=== PATIENT | female | born 1975 | race Two or more races ===

== ENCOUNTER 2016-05-09 05:34 | Emergency (ER) | payer SELFPAY ==
[~2016-05-09] VITALS: Ht 167.6 cm; Wt 68.9 kg
[2016-05-09] MEDS ORDERED: 0.9 % SODIUM CHLORIDE 10 ML DISP.SYRIN. IV PRN (06:00)
[2016-05-09 06:32] LABS: BASO % 1 % (0-3); EOS % 1 % (0-3); HEMATOCRIT 39.1 % (36.0-47.0); HEMOGLOBIN 12.9 g/dL (12.0-15.5); LYMPH # 1.5 x10^3/uL (1.0-4.8); LYMPH % 17 % (24-48); MEAN CORPUSCULAR HEMOGLOBIN 25 pg (25-35); MEAN CORPUSCULAR HGB CONC 33 g/dL (31-37); MEAN CORPUSCULAR VOLUME 77 fL (79-100); MONO % 5 % (0-9); NEUT % 77 % (31-73); PLATELET COUNT 217 x10^3/uL (140-400); RED BLOOD COUNT 5.08 x10^6/uL (3.50-5.40); RED CELL DISTRIBUTION WIDTH 16.3 % (11.5-14.5)
[2016-05-09 06:39] LABS: ANION GAP 11 (6-14); BLOOD UREA NITROGEN 9 mg/dL (7-20); CALCIUM 9.3 mg/dL (8.5-10.1); CARBON DIOXIDE 24 mmol/L (21-32); CHLORIDE 106 mmol/L (98-107); CREATININE 0.9 mg/dL (0.6-1.0); GFR 69.3; GLUCOSE 103 mg/dL (70-99); POTASSIUM 4.3 mmol/L (3.5-5.1); SODIUM 141 mmol/L (136-145)
[2016-05-09 06:44] LABS: ALBUMIN 3.8 g/dL (3.4-5.0); ALK PHOS 89 U/L (46-116); ALT (SGPT) 18 U/L (14-59); AST (SGOT) 16 U/L (15-37); DIRECT BILIRUBIN < 0.1 mg/dL (0.0-0.2); TOTAL BILIRUBIN 0.2 mg/dL (0.2-1.0); TOTAL PROTEIN 7.5 g/dL (6.4-8.2)
[2016-05-09] MEDS ORDERED: ACETAMINOPHEN 325 MG TABLET. PO ONE (07:00)
--- NOTE | 2016-05-09 08:07 | PHYS DOC ---
Past Medical History Past Medical History: Hypertension, Seizure Past Surgical History: Appendectomy, Tonsillectomy, Other Additional Past Surgical Histo: thyroidectomy Additional Information: quit 1 week ago Alcohol Use: Occasionally Drug Use: None Adult General Chief Complaint Chief Complaint: SEIZURE HPI HPI 40-year-old female with a history of epilepsy presents emergency department today after having a seizure. She has not been taking her medications. Currently she is trying "herbal therapy". Her boyfriend is here with her who witnessed the event. He states that it lasted less than 30 seconds. He reports or shaking with all extremities. Afterwards she was confused which improved back to baseline over a short period of time. She denies fecal or urinary incontinence. She denies tongue biting. She denies nausea vomiting fevers or chills. Onset tonight. Location generalized. Duration intermittent. No alleviating factors present. Review of systems is negative for chest pain shortness of breath abdominal pain. All other review of systems is negative unless otherwise noted in history of present illness. Review of Systems Review of Systems SEE ABOVE. Current Medications Current Medications Current Medications Medications (Trade) Dose Ordered Sig/Laura Start Time Stop Time Status Last Admin Dose Admin Acetaminophen (Tylenol) 650 mg 1X ONCE 05/09/16 07:00 05/09/16 07:01 DC 05/09/16 06:52 650 MG Sodium Chloride (Normal Saline Flush) 10 ml QSHIFT PRN 05/09/16 06:00 Allergies Allergies Allergies Coded Allergies Type Severity Reaction Last Updated Verified Unable to Assess 05/09/16 No Physical Exam Physical Exam Constitutional: Well developed, well nourished, no acute distress, non-toxic appearance. HENT: Normocephalic, atraumatic, bilateral external ears normal, oropharynx moist, no oral exudates, nose normal. [] Eyes: PERRLA, EOMI, conjunctiva normal, no discharge. [] Neck: Normal range of motion, no tenderness, supple, no stridor. Cardiovascular:Heart rate regular rhythm, no murmur [] Lungs & Thorax: Bilateral breath sounds clear to auscultation Abdomen: Bowel sounds normal, soft, no tenderness, no masses, no pulsatile masses. [] Skin: Warm, dry, no erythema, no rash. Back: No tenderness, no CVA tenderness. [] Extremities: No tenderness, no cyanosis, no clubbing, ROM intact, no edema. Neurologic: Neuro exam: Mental status: Awake oriented and alert x3 Cranial nerves: Extraocular movements intact, eyebrows tino bilaterally smile symmetric, uvula elevation, shoulder shrug intact, tongue protrusion normal Sensation: equal and normal in all extremities Strength: 5/5 in upper and lower extremities bilaterally Psychologic: Affect normal, judgement normal, mood normal. [] Current Patient Data Vital Signs Vital Signs Date Time Temp Pulse Resp B/P Pulse Ox O2 Delivery O2 Flow Rate FiO2 05/09/16 06:43 70 149/98 96 Room Air 05/09/16 05:43 98.7 16 98.7 Lab Values Laboratory Tests Test 05/09/16 06:00 05/09/16 06:15 05/09/16 07:55 05/09/16 08:03 White Blood Count 9.0x10^3/uL (4.0-11.0) Red Blood Count 5.08x10^6/uL (3.50-5.40) Hemoglobin 12.9g/dL (12.0-15.5) Hematocrit 39.1% (36.0-47.0) Mean Corpuscular Volume 77fL (79-100) L Mean Corpuscular Hemoglobin 25pg (25-35) Mean Corpuscular Hemoglobin Concent 33g/dL (31-37) Red Cell Distribution Width 16.3% (11.5-14.5) H Platelet Count 217x10^3/uL (140-400) Neutrophils (%) (Auto) 77% (31-73) H Lymphocytes (%) (Auto) 17% (24-48) L Monocytes (%) (Auto) 5% (0-9) Eosinophils (%) (Auto) 1% (0-3) Basophils (%) (Auto) 1% (0-3) Neutrophils # (Auto) 6.9x10^3uL (1.8-7.7) Lymphocytes # (Auto) 1.5x10^3/uL (1.0-4.8) Monocytes # (Auto) 0.4x10^3/uL (0.0-1.1) Eosinophils # (Auto) 0.1x10^3/uL (0.0-0.7) Basophils # (Auto) 0.0x10^3/uL (0.0-0.2) Prothrombin Time 13.0SEC (11.7-14.0) Prothrombin Time INR 1.0 (0.8-1.1) PTT 35SEC (24-38) Sodium Level 141mmol/L (136-145) Potassium Level 4.3mmol/L (3.5-5.1) Chloride Level 106mmol/L (98-107) Carbon Dioxide Level 24mmol/L (21-32) Anion Gap 11 (6-14) Blood Urea Nitrogen 9mg/dL (7-20) Creatinine 0.9mg/dL (0.6-1.0) Estimated GFR (Cockcroft-Gault) 69.3 Glucose Level 103mg/dL (70-99) H Calcium Level 9.3mg/dL (8.5-10.1) Total Bilirubin 0.2mg/dL (0.2-1.0) Direct Bilirubin < 0.1mg/dL (0.0-0.2) Aspartate Amino Transferase (AST) 16U/L (15-37) Alanine Aminotransferase (ALT) 18U/L (14-59) Alkaline Phosphatase 89U/L (46-116) Total Protein 7.5g/dL (6.4-8.2) Albumin 3.8g/dL (3.4-5.0) Lactic Acid Level 1.7mmol/L (0.4-2.0) Urine Opiates Screen Pos (NEG) Urine Methadone Screen Neg (NEG) Urine Barbiturates Pos (NEG) Urine Phencyclidine Screen Neg (NEG) Urine Amphetamine/Methamphetamine Neg (NEG) Urine Benzodiazepines Screen Neg (NEG) Urine Cocaine Screen Neg (NEG) Urine Cannabinoids Screen Neg (NEG) Urine Ethyl Alcohol Neg (NEG) POC Urine HCG, Qualitative Hcg negative (Negative) Laboratory Tests 05/09/16 06:00 Laboratory Tests 05/09/16 06:00 EKG EKG [] Radiology/Procedures Radiology/Procedures [] Course & Med Decision Making Course & Med Decision Making Pertinent Labs and Imaging studies reviewed. (See chart for details) [] 40-year-old female presenting to the emergency department today with one episode of seizure activity and a postictal period with return to baseline. On examination the patient was afebrile with a normal heart rate. Blood pressure mildly elevated. Physical exam showed a normal neurologic exam. Blood work obtained which showed a normal CBC. Coags were within normal limits. Lactic acid was not elevated. I referred the patient to our neurology team for epilepsy management, further evaluation workup and care in the outpatient setting. The patient was instructed not to drive due to seizure disorder. I discussed the case with our neurologist Dr. Lizama who recommended restarting the patient's Depakote at 500 twice a day to follow-up with him in clinic next week. Dragon Disclaimer Dragon Disclaimer This electronic medical record was generated, in whole or in part, using a voice recognition dictation system. Departure Departure Impression: Primary Impression: Seizure Disposition: HOME, SELF-CARE Condition: STABLE Referrals: NO PCP (PCP) RADHIKA BASSETT MD 2-3 days Patient Instructions: Epilepsy, [id number], Seizure, Adult Additional Instructions: Thank you for allowing us to participate in your care today. Do not drive because you have seizure disorder. Followup with your neurologist or our neurologist that I provided for you today in 2-3 days. If you do not have a primary care provider you can ask for a list of our primary care providers. Return to the emergency department you have any new or concerning findings. This should be evaluated by the primary care physician and any necessary consulting services for continued management within a few days after discharge. Return to emergency room if you have any new or concerning symptoms including but not limited to fever, chills, nausea, vomiting, intractable pain, any new rashes, chest pain, shortness of air, uncontrolled bleeding, difficulty breathing, and/or vision loss. Scripts Divalproex Sodium (Depakote)500 Mg Tablet.dr1 Tab PO BID #14 TAB Ref 1 Prov:ELIESER ACEVES MD 05/09/16 ELIESER ACEVES MD May 09, 2016 08:07
[2016-05-09 08:21] LABS: BARBITURATES POS (NEG); BENZODIAZEPINES NEG (NEG); CANNABINOIDS NEG (NEG); COCAINE NEG (NEG); METHADONE NEG (NEG); OPIATES POS (NEG); PHENCYCLIDINE NEG (NEG)
[2016-05-09 08:25] LABS: ETHANOL, URINE NEG (NEG)
[2016-05-09] MEDS ORDERED: DIVA500T2 PO (08:40)
[2016-05-09 09:05] VITALS: BP 141/90
== END 2016-05-09 09:15 | disposition home or self-care (01) ==
LOC: ER 05:34
DX: G40.909 Epilepsy, unspecified, not intractable, without status epilepticus (principal); I10 Essential (primary) hypertension; E89.0 Postprocedural hypothyroidism; Z87.891 Personal history of nicotine dependence
CPT/HCPCS: 36415; 80048; 80076; 81025; 83605; 85027; 85610; 85730; 99284; G0481

== ENCOUNTER → 2016-07-09 | Outpatient (CLI) | payer BC ==
[~2016-07-09] MED LIST: DIVA500T2 PO
--- NOTE | 2016-07-10 09:13 | KCIC ---
Bilateral digital diagnostic mammograms with CAD: HISTORY Left breast lump. COMPARISON Baseline exam. FINDINGS Breast density category B. The skin and nipples show no abnormalities. No abnormal lymph nodes are seen in the axilla. The breast parenchyma shows scattered fibroglandular density. In the area of clinical concern the 10 o'clock C position, there is a thin ring of density suggesting a small focus of fat necrosis. Posterior centrally in the left breast on CC view, there is some parenchymal density which appears to represent some superimposition of tissues. There are no other dominant masses, suspicious calcifications or architectural distortions. IMPRESSION No evidence of malignancy. Ultrasound to follow. This study was interpreted with the benefit of Computerized Aided Detection (CAD). Mammography is not 100% sensitive in detecting breast cancer. Therefore, a self breast exam and a clinical breast exam are very important. A negative mammogram does not negate a clinically suspicious finding and should not result in a delay in biopsying a clinically suspicious abnormality. BI-RADS category 0: Incomplete. Ultrasound to follow. Left breast ultrasound: Ultrasound examination was performed of the left breast in the area of clinical concern and posterior centrally in the area of mammographic density. At the 10:30 position 11 centimeters from nipple and corresponding to the area of clinical concern and ring like density seen mammographically, there is a 6.7 x 6.2 millimeter hypoechoic lesion with some internal echogenicity to which shows no vascular flow. This probably reflects fat necrosis. No other focal lesions are seen in the left breast. No abnormal lymph nodes are seen in the left axilla. Impression: 6.7 millimeter hypoechoic nodule consistent with fat necrosis. Recommend follow-up in 3 months with mammograms and ultrasound of the left breast. BI-RADS category 3: Probably benign. This patient's information has been entered into a reminder system for the patient to be notified with the results of this examination and a target date for her next mammograms. Electronically signed by: Karyna Schuster MD (Jul 10, 2016 09:12:30)
== END | disposition home or self-care (01) ==
LOC: KCIC MAMMO 08:47
PROVIDERS: ATTEND Family Medicine
DX: N63 Unspecified lump in breast (principal)
CPT/HCPCS: 76641; G0204; 77066

== ENCOUNTER → 2016-09-01 | Outpatient (CLI) | payer BC ==
--- NOTE | 2016-09-01 11:52 | KCIC ---
MR of the left knee HISTORY: Left knee pain and limited mobility. Injury and surgery of the patella August 2015. COMPARISON: None FINDINGS: No evidence of a medial meniscal tear. No evidence of a lateral meniscal tear. Anterior cruciate ligament intact. Posterior cruciate ligament intact Medial collateral ligament is intact. Iliotibial band unremarkable Fibular collateral ligament, biceps femoris tendon and popliteus tendon are intact. Extensive metal artifact obscures the patella, distal quadriceps tendon and proximal patellar tendon. No significant joint effusion. No significant Red's cyst. Patellofemoral joint: Cartilage is obscured by the artifact. Medial joint: No acute cartilage defect Lateral joint: No acute cartilage defect No evidence of bone lesion or acute fracture. No significant Red's cyst. IMPRESSION: 1. Patella and extensor mechanism is poorly evaluated due to metal artifact. 2. No evidence of internal derangement. Electronically signed by: Jhonatan Krishnan MD (09/01/2016 11:49 AM)
--- NOTE | 2016-09-01 11:57 | KCIC ---
MR of the right knee HISTORY: Right knee pain. No known injury. TECHNIQUE: Routine multiplanar sequences are obtained. FINDINGS: No evidence of medial meniscal tear. No evidence of a lateral meniscal tear. Anterior cruciate ligament intact Posterior cruciate ligament intact Medial collateral ligament intact Iliotibial band unremarkable Fibular collateral ligament, biceps femoris tendon and popliteus tendon are intact. Extensor mechanism intact Small joint effusion No evidence of osteochondral loose body. Moderate chondromalacia of the patella. No bone lesion or acute fracture. No significant Red's cyst. IMPRESSION: Moderate chondromalacia of the patella. Electronically signed by: Jhonatan Krishnan MD (09/01/2016 11:54 AM)
== END | disposition home or self-care (01) ==
LOC: KCIC MRI 09:48
PROVIDERS: ATTEND Orthopaedic Surgery Sports Medicine
DX: M22.41 Chondromalacia patellae, right knee (principal)
CPT/HCPCS: 73721

== ENCOUNTER 2016-10-29 06:02 | Day surgery (SDC) | payer BC ==
[~2016-10-29] VITALS: Ht 170.2 cm; Wt 81.2 kg
[~2016-10-29 06:02] MED LIST changes: +LISI30TA4 PO; +VERA240C2 PO
[2016-10-29 06:33] LABS: NEG OBC UR NEG; POS OBC UR POS
[2016-10-29] MEDS ORDERED: LIDOCAINE 1% 1 ML SYRINGE. ID PRN (07:00)
[2016-10-29] MEDS ORDERED: IV RINGERS,LACTATED 1000ML 1,000 ML IV SCH (07:00)
[2016-10-29] MEDS ORDERED: fentaNYL PF VIAL 100 MCG/2 ML VIAL IV PRN (07:00)
[2016-10-29] MEDS ORDERED: HYDROmorphone 2 MG/ML VIAL IV PRN (07:00)
[2016-10-29] MEDS ORDERED: ONDANSETRON PF 4 MG/2 ML VIAL. IV PRN (07:00)
[2016-10-29] MEDS ORDERED: PROCHLORPERAZINE 10 MG/2 ML VIAL. IV PRN (07:00)
[2016-10-29] MEDS ORDERED: BUPIVACAINE MPF 0.5% 30 ML VIAL. ONE (07:01)
[2016-10-29] MEDS ORDERED: EPINEPHrine VIAL 30 MG/30 ML VIAL ONE (07:01)
[2016-10-29] MEDS ORDERED: LIDOCAINE 1% 20 ML VIAL. ONE (07:01)
[2016-10-29] MEDS ORDERED: fentaNYL PF VIAL 100 MCG/2 ML VIAL ONE ×3 (07:30→08:42)
[2016-10-29] MEDS ORDERED: PROPOFOL 20 ML IV ONE (07:30)
[2016-10-29] MEDS ORDERED: ONDANSETRON PF 4 MG/2 ML VIAL. ONE (07:30)
[2016-10-29] MEDS ORDERED: LIDOCAINE 2% PF Vial for OR 5 ML VIAL. ONE (07:30)
[2016-10-29] MEDS ORDERED: DEXAMETHASONE SOD PHOS 20 MG/5 ML VIAL. ONE (07:30)
[2016-10-29] MEDS ORDERED: MIDAZOLAM HCL/PF 2 MG/2 ML VIAL. ONE (07:30)
--- NOTE | 2016-10-29 07:40 | DISCH ---
DISCHARGE INSTRUCTIONS Condition on Discharge Condition on Discharge: Stable Activity After Discharge Activity Instructions for Disc: Activity as tolerated, Other, see below Bathing Instructions: Shower-keep dressing dry Weight Bearing Status after Di: As tolerated Diet after Discharge Diet after Discharge: Regular Wound Incision Care Wound/Incision Care: Ice to area for comfort, Keep wound/cast CDI, Change dressing Contacting the [facility] after DC Call your doctor for: Concerns you may have Follow-Up Follow up with: Nabila in 2wks LELAND SPEARS II, MD Oct 29, 2016 07:40
[2016-10-29] MEDS: fentaNYL PF VIAL 100 MCG/2 ML VIAL IV PRN ×3 (08:30→08:53)
[2016-10-29] MEDS ORDERED: MORPHINE SULFATE 2 MG/ML DISP.SYRIN. ONE (08:42)
[2016-10-29] MEDS: MORPHINE SULFATE 2 MG/ML DISP.SYRIN. IV PRN ×2 (08:46→08:59)
[2016-10-29] MEDS ORDERED: OXYC-323 PO (08:49)
[2016-10-29] MEDS ORDERED: DOCU-109 PO (08:50)
[2016-10-29] MEDS ORDERED: ONDA4TAB10 SL (08:50)
--- NOTE | 2016-10-29 08:52 | PDOC4 ---
Operative Note Operative Note Date of surgery 10/29/2016 Surgeon: Shoaib Spears MD Preoperative diagnosis: Painful mechanical symptoms after ORIF left patella Postoperative diagnosis same Procedure performed: Diagnostic left knee arthroscopy Blood loss 10 mL Anesthesia Gen. Tourniquet time: None Findings: No loose bodies present, intact cartilage and meniscus without pathology and medial compartment, intact cruciate ligaments, grade 2-3 changes of a small area in the posterior lateral tibial plateau. No meniscal pathology laterally. No femoral condyle pathology laterally. Examination of her patella revealed a small cleft, less than 1 mm, presumably the fracture site. There was abundant thickened fibrotic tissue around this area. Reason for procedure: Patient is a very pleasant 40-year-old female who has been troubled with painful catching between 30 and 45 of knee flexion that is limited her ability to rehabilitation her leg and regaining her strength after ORIF patella. Critical examination, x-rays and MRI were performed in my outpatient orthopedic surgery clinic. Because of this was reducible catching and inability to participate well in rehabilitation, she and I had a discussion of the risks, benefits, and alternatives to the above procedure and she elected to proceed. Description of procedure: Patient was greeted in the preoperative area by myself for the correct extremity was marked and verified. She was taken back to the operative suite and her antibiotics were started and row. Once in the operating room, she was transferred gently supine to the or table and had successful induction of a general anesthetic. She was secured to the bed with all pressure points padded. A nonsterile tourniquet was taped in place to her left upper thigh. We had a padded rest for her foot and a padded bump laterally at her left hip to help maintain her leg at 90 of flexion at the knee. I then conducted an examination under anesthesia and could feel a catch at about 30 of flexion. Her knee was stable to varus and valgus and has negative Marco. Range of motion was 0-140. We then proceeded to prep and drape of left lower extremity in her usual sterile fashion and conducted a standard preoperative timeout. I then palpated and marked her surface anatomy for my anterolateral arthroscopic portal and incised in accordance with this. I then introduced a blunt arthroscopic trocar into the suprapatellar pouch followed by the camera. I then began my diagnostic arthroscopy with the above noted findings and upon entering the medial compartment using a spinal needle to localize an anteromedial portal. I then incised skin in accordance with this and dilated the hole with the trocar. I then introduce my probe and continued with my diagnostic arthroscopy. I spent time inspecting her patella and taking her knee through range of motion and felt that a very thickened large area of fibrotic tissue may have been contributing to her symptoms. This was separate from a plica. This thickened fibrotic tissue was basically just involve the anterolateral area inferior to the patella but upon range of motion I could see that it wouldn't entrap between the patella and trochlea. Therefore, I used a shaver to debride this tissue. I then reconstructed my diagnostic arthroscopy to make sure there was no loose tissue floating around. I then placed my camera and shaver into the suprapatellar pouch and performed repeated aspiration maneuvers with palpation in the posterior knee. After this had removed all excess arthroscopic fluid and the arthroscopic instrumentation. I then closed her portals with simple interrupted 3-0 nylon. I then injected a local anesthetic mixture into the periportal area. After this the leg was cleansed and dried and a sterile dressing was applied. She was awakened from surgery. She tolerated surgery well. No complications. At the conclusion of the surgery she was awakened and transferred gently supine to the recovery room cart and taken to the PACU in stable and extubated condition. Postoperative plan is to resume physical therapy. She can weight-bear as tolerated. Wound care instructions were given to her . We will see her back in 2 weeks, sooner should a problem arises SHOAIB SPEARS II, MD Oct 29, 2016 08:52
[2016-10-29] MEDS ORDERED: ceFAZolin 2GM PREMIX 2 GM/50 ML BAG IV ONE (09:00)
[2016-10-29] MEDS ORDERED: oxyCODONE/APAP 5/325 1 TAB TABLET PO ONE (09:00)
[2016-10-29] MEDS ORDERED: ALBUTEROL SULFATE 2.5 MG/3 ML NEBU. NEB ONE (09:30)
[2016-10-29 09:43] VITALS: BP 174/104
== END 2016-10-29 10:08 | disposition home or self-care (01) ==
LOC: SURG 06:02
PROVIDERS: ATTEND Orthopaedic Surgery Sports Medicine
DX: T84.197A Other mechanical complication of internal fixation device of bone of left lower leg, initial encounter (principal); Y84.8 Other medical procedures as the cause of abnormal reaction of the patient, or of later complication, without mention of misadventure at the time of the procedure; I10 Essential (primary) hypertension; E11.9 Type 2 diabetes mellitus without complications; F41.9 Anxiety disorder, unspecified; F17.200 Nicotine dependence, unspecified, uncomplicated; Z86.69 Personal history of other diseases of the nervous system and sense organs; Z87.39 Personal history of other diseases of the musculoskeletal system and connective tissue; Z86.39 Personal history of other endocrine, nutritional and metabolic disease
CPT/HCPCS: 29870; 81025; C1782; J0171; J0690; J1100; J2250; J2270; J2405; J2704; J3010; J3490; J7613; J2001

== ENCOUNTER → 2017-09-09 | Outpatient (CLI) | payer BC | END | disposition home or self-care (01) | LOC: KCIC MRI 15:32 | DX: M22.41 Chondromalacia patellae, right knee (principal) | CPT/HCPCS: 73721 ==

== ENCOUNTER 2019-03-01 19:20 | Emergency (ER) | payer BC ==
[~2019-03-01] VITALS: Ht 170.2 cm; Wt 83.9 kg
[~2019-03-01 19:20] MED LIST changes: +DOCU-109 PO; +ONDA4TAB10 SL; +OXYC1TAB15 PO
--- NOTE | 2019-03-01 19:43 | PHYS DOC ---
Past Medical History Past Medical History: Hypertension, Seizure Past Surgical History: Appendectomy, Tonsillectomy, Other Additional Past Surgical Histo: thyroidectomy Alcohol Use: Occasionally Drug Use: None Adult General Chief Complaint Chief Complaint: SEIZURE HPI HPI Patient is a 43-year-old female who presents after reportedly having had 2 seizures this evening. Patient had one seizure approximately an hour prior to arrival that lasted approximately 45 seconds. EMS had responded to the scene and patient had refused transport but while EMS was at patient's home, patient had second seizure, lasting proximally 30 seconds. Seizures were generalized, tonic- clonic. Patient states that she typically has mild seizures on a daily basis but state that they are typically partial seizures. Patient reportedly fell from standing position and hit her right cheek and worship area. Patient does not recall the incident. She does report to headache and facial pain. She rates that pain as moderate.[] Review of Systems Review of Systems Constitutional: Denies fever or chills [] Eyes: Denies change in visual acuity, redness, or eye pain [] Respiratory: Denies cough or shortness of breath [] Cardiovascular: No additional information not addressed in HPI [] GI: Denies abdominal pain, nausea, vomiting or diarrhea [] Neurologic: Complains of headache without focal weakness or sensory changes [] All other systems were reviewed and found to be within normal limits, except as documented in this note. Current Medications Current Medications Current Medications Medications (Trade) Dose Ordered Sig/[facility] Start Time Stop Time Status Last Admin Dose Admin Fentanyl Citrate (Fentanyl 2ml Vial) 50 mcg 1X ONCE 03/01/19 21:15 03/01/19 21:16 DC 03/01/19 21:30 50 MCG Hydromorphone HCl (Dilaudid) 0.5 mg 1X ONCE 03/01/19 22:15 03/01/19 22:16 DC 03/01/19 22:18 0.5 MG Ketorolac Tromethamine (Toradol 30mg Vial) 30 mg 1X ONCE 03/01/19 20:45 03/01/19 20:46 DC 03/01/19 20:49 30 MG Lorazepam (Ativan Inj) 1 mg 1X ONCE 03/01/19 19:45 03/01/19 19:46 DC 03/01/19 20:04 1 MG Ondansetron HCl (Zofran) 4 mg 1X ONCE 03/01/19 21:15 03/01/19 21:16 DC 03/01/19 21:28 4 MG Sumatriptan Succinate (Imitrex) 6 mg 1X ONCE 03/01/19 22:15 03/01/19 22:16 DC 03/01/19 22:19 6 MG Valproic Acid 500 mg/Dextrose 55 ml @ 55 mls/hr 1X ONCE 03/01/19 21:15 03/01/19 22:14 DC 03/01/19 21:21 55 MLS/HR Allergies Allergies Allergies Coded Allergies Type Severity Reaction Last Updated Verified No Known Drug Allergies 10/29/16 No Physical Exam Physical Exam Constitutional: Well developed, well nourished, no acute distress, non-toxic appearance. [] HENT: Normocephalic, with ecchymosis noted to the right worship and maxillary region, bilateral external ears normal, oropharynx moist, no oral exudates, nose normal. [] Eyes: PERRLA, EOMI, conjunctiva normal, no discharge. [] Neck: Normal range of motion, no tenderness, supple, no stridor. [] Cardiovascular: Regular rate and rhythm[] Lungs & Thorax: Bilateral breath sounds clear to auscultation [] Abdomen: Bowel sounds normal, soft, no tenderness. [] Skin: Warm, dry, no erythema, no rash. [] Extremities: No tenderness, no cyanosis, no clubbing, ROM intact, no edema. [] Neurologic: Somnolent but awake, no focal deficits noted. [] Current Patient Data Vital Signs Vital Signs Date Time Temp Pulse Resp B/P (MAP) Pulse Ox O2 Delivery O2 Flow Rate FiO2 03/01/19 22:18 16 96 Room Air 03/01/19 21:37 94 03/01/19 19:20 98.6 148/92 (110) 98.6 Lab Values Laboratory Tests Test 03/01/19 19:33 White Blood Count 7.7 x10^3/uL (4.0-11.0) Red Blood Count 4.67 x10^6/uL (3.50-5.40) Hemoglobin 14.2 g/dL (12.0-15.5) Hematocrit 40.7 % (36.0-47.0) Mean Corpuscular Volume 87 fL (79-100) Mean Corpuscular Hemoglobin 31 pg (25-35) Mean Corpuscular Hemoglobin Concent 35 g/dL (31-37) Red Cell Distribution Width 13.1 % (11.5-14.5) Platelet Count 190 x10^3/uL (140-400) Neutrophils (%) (Auto) 75 % (31-73) H Lymphocytes (%) (Auto) 16 % (24-48) L Monocytes (%) (Auto) 7 % (0-9) Eosinophils (%) (Auto) 2 % (0-3) Basophils (%) (Auto) 1 % (0-3) Neutrophils # (Auto) 5.8 x10^3/uL (1.8-7.7) Lymphocytes # (Auto) 1.2 x10^3/uL (1.0-4.8) Monocytes # (Auto) 0.6 x10^3/uL (0.0-1.1) Eosinophils # (Auto) 0.1 x10^3/uL (0.0-0.7) Basophils # (Auto) 0.0 x10^3/uL (0.0-0.2) Sodium Level 137 mmol/L (136-145) Potassium Level 3.4 mmol/L (3.5-5.1) L Chloride Level 96 mmol/L (98-107) L Carbon Dioxide Level 30 mmol/L (21-32) Anion Gap 11 (6-14) Blood Urea Nitrogen 21 mg/dL (7-20) H Creatinine 1.5 mg/dL (0.6-1.0) H Estimated GFR (Cockcroft-Gault) 37.9 BUN/Creatinine Ratio 14 (6-20) Glucose Level 150 mg/dL (70-99) H Lactic Acid Level 3.6 mmol/L (0.4-2.0) H Calcium Level 10.6 mg/dL (8.5-10.1) H Total Bilirubin 0.5 mg/dL (0.2-1.0) Aspartate Amino Transferase (AST) 16 U/L (15-37) Alanine Aminotransferase (ALT) 15 U/L (14-59) Alkaline Phosphatase 72 U/L (46-116) Total Protein 7.9 g/dL (6.4-8.2) Albumin 3.9 g/dL (3.4-5.0) Albumin/Globulin Ratio 1.0 (1.0-1.7) Valproic Acid Level 27 mcg/mL (50-100) L Valproic Acid Last Dose Date 02/28/19 Valproic Acid Last Dose Time 2200 Laboratory Tests 03/01/19 19:33 Laboratory Tests 03/01/19 19:33 EKG EKG [] Radiology/Procedures Radiology/Procedures [] Impressions: PROCEDURE: CT HEAD AND MAXILLOFACIAL WO PQRS Compliance Statement: One or more of the following individualized dose reduction techniques were utilized for this examination: 1. Automated exposure control 2. Adjustment of the mA and/or kV according to patient size 3. Use of iterative reconstruction technique CT HEAD, MAXILLOFACIAL, AND CERVICAL SPINE WITHOUT CONTRAST History: Fall, seizure. Comparison: None. Procedure: Axial images are obtained of the head from the skull base through the vertex without IV contrast. Noncontrast helical CT of the cervical spine was performed. Axial, sagittal, and coronal reconstructions were obtained. Helical CT imaging of the facial bones is performed without IV contrast. Findings: The ventricles and sulci are normal for the patient's age. No mass-effect, midline shift, hemorrhage or obvious acute infarction is identified. Basilar cisterns are patent. Bone windows demonstrate no significant calvarial abnormality. There is mild lateral right frontal scalp hematoma. No acute facial bone fracture. Orbital floors are intact. Mild mucosal thickening of the maxillary sinuses bilaterally. Ostiomeatal complexes are partially opacified. Mastoid air cells are well aerated. There is left mandible posterior molar periapical lucency. There is no evidence of acute fracture or acute malalignment of the cervical spine. No perched or jumped facet joints. No significant disc space narrowing. The vertebral body alignment is maintained. Visualized soft tissues of the neck demonstrate no significant abnormalities. The visualized lung apices are clear. IMPRESSION: 1. No acute intracranial abnormality. 2. No acute fracture of the cervical spine. 3. No acute facial bone fracture. 4. Mild lateral right frontal scalp hematoma. Electronically signed by: Jacobo Gonzalez MD (03/01/2019 8:19 PM) [facility] DICTATED and SIGNED BY: JACOBO GONZALEZ MD DATE: 03/01/192018 Course & Med Decision Making Course & Med Decision Making Pertinent Labs and Imaging studies reviewed. (See chart for details) [] Dragon Disclaimer Dragon Disclaimer This electronic medical record was generated, in whole or in part, using a voice recognition dictation system. Departure Departure Impression: Primary Impression: Seizure Additional Impression: Migraine headache Disposition: 01 HOME, SELF-CARE Condition: STABLE Referrals: [facility]ABATUN[facility] (PCP) Patient Instructions: Migraine Headache, Seizure, Adult Problem Qualifiers Additional Impression: Migraine headache Migraine type: unspecified Status migrainosus presence: without status migrainosus Intractability: not intractable Qualified Codes: G43.909 - Migraine, unspecified, not intractable, without status migrainosus JUAN C LUGO Jr. DO Mar 01, 2019 19:43
[2019-03-01 19:50] LABS: BASO % 1 % (0-3); EOS # 0.1 x10^3/uL (0.0-0.7); EOS % 2 % (0-3); HEMATOCRIT 40.7 % (36.0-47.0); HEMOGLOBIN 14.2 g/dL (12.0-15.5); LYMPH # 1.2 x10^3/uL (1.0-4.8); LYMPH % 16 % (24-48); MEAN CORPUSCULAR HEMOGLOBIN 31 pg (25-35); MEAN CORPUSCULAR HGB CONC 35 g/dL (31-37); MEAN CORPUSCULAR VOLUME 87 fL (79-100); MONO # 0.6 x10^3/uL (0.0-1.1); MONO % 7 % (0-9); NEUT # 5.8 x10^3/uL (1.8-7.7); NEUT % 75 % (31-73); PLATELET COUNT 190 x10^3/uL (140-400); RED BLOOD COUNT 4.67 x10^6/uL (3.50-5.40); RED CELL DISTRIBUTION WIDTH 13.1 % (11.5-14.5); WHITE BLOOD COUNT 7.7 x10^3/uL (4.0-11.0)
[2019-03-01 20:04] LABS: ANION GAP 11 (6-14); BLOOD UREA NITROGEN 21 mg/dL (7-20); BUN/CREATININE RATIO 14 (6-20); CALCIUM 10.6 mg/dL (8.5-10.1); CARBON DIOXIDE 30 mmol/L (21-32); CHLORIDE 96 mmol/L (98-107); CREATININE 1.5 mg/dL (0.6-1.0); GFR 37.9; GLUCOSE 150 mg/dL (70-99); POTASSIUM 3.4 mmol/L (3.5-5.1); SODIUM 137 mmol/L (136-145)
[2019-03-01 20:09] LABS: ALBUMIN 3.9 g/dL (3.4-5.0); ALK PHOS 72 U/L (46-116); ALT (SGPT) 15 U/L (14-59); AST (SGOT) 16 U/L (15-37); TOTAL BILIRUBIN 0.5 mg/dL (0.2-1.0); TOTAL PROTEIN 7.9 g/dL (6.4-8.2)
--- NOTE | 2019-03-01 20:22 | RAD ---
PQRS Compliance Statement: One or more of the following individualized dose reduction techniques were utilized for this examination: 1. Automated exposure control 2. Adjustment of the mA and/or kV according to patient size 3. Use of iterative reconstruction technique CT HEAD, MAXILLOFACIAL, AND CERVICAL SPINE WITHOUT CONTRAST History: Fall, seizure. Comparison: None. Procedure: Axial images are obtained of the head from the skull base through the vertex without IV contrast. Noncontrast helical CT of the cervical spine was performed. Axial, sagittal, and coronal reconstructions were obtained. Helical CT imaging of the facial bones is performed without IV contrast. Findings: The ventricles and sulci are normal for the patient's age. No mass-effect, midline shift, hemorrhage or obvious acute infarction is identified. Basilar cisterns are patent. Bone windows demonstrate no significant calvarial abnormality. There is mild lateral right frontal scalp hematoma. No acute facial bone fracture. Orbital floors are intact. Mild mucosal thickening of the maxillary sinuses bilaterally. Ostiomeatal complexes are partially opacified. Mastoid air cells are well aerated. There is left mandible posterior molar periapical lucency. There is no evidence of acute fracture or acute malalignment of the cervical spine. No perched or jumped facet joints. No significant disc space narrowing. The vertebral body alignment is maintained. Visualized soft tissues of the neck demonstrate no significant abnormalities. The visualized lung apices are clear. IMPRESSION: 1. No acute intracranial abnormality. 2. No acute fracture of the cervical spine. 3. No acute facial bone fracture. 4. Mild lateral right frontal scalp hematoma. Electronically signed by: Jacobo Rios MD (03/01/2019 8:19 PM) [facility]
[2019-03-01] MEDS ORDERED: KETOROLAC 30 MG/ML VIAL. IVP ONE (20:45)
[2019-03-01 21:04] LABS: VAL ACID 27 mcg/mL (50-100)
[2019-03-01] MEDS ORDERED: ONDANSETRON PF 4 MG/2 ML VIAL. IV ONE (21:15)
[2019-03-01] MEDS ORDERED: fentaNYL PF VIAL 100 MCG/2 ML VIAL IVP ONE (21:15)
[2019-03-01] MEDS ORDERED: VALPROIC ACID (AS SODIUM SALT) 500 MG in IV DEXTROSE 5% 50 ML IV ONE (21:15)
[2019-03-01 22:07] VITALS: BP 127/79
[2019-03-01] MEDS ORDERED: SUMAtriptan SUCC 6 MG/0.5 ML VIAL. SQ ONE (22:15)
[2019-03-01] MEDS ORDERED: HYDROmorphone 2 MG/ML VIAL IV ONE (22:15)
--- NOTE | 2019-03-02 04:26 | EKG ---
[facility] [address] [place] [address] Test Date: 2019-03-01 Test Time: 19:26:04 Pat Name: SRI MAR Department: Room: Gender: F Shank Burnisher: JOSSE : 1975 Requested By: JUAN C LUGO Order Number: [id number] Reading MD: Measurements Intervals [place] Rate: 93 P: -22 WV: 190 QRS: 26 QRSD: 82 T: 51 QT: 326 QTc: 407 Interpretive Statements SINUS RHYTHM NON SPECIFIC T ABNORMALITY BORDERLINE ECG No previous ECG available for comparison
== END 2019-03-01 22:55 | disposition home or self-care (01) ==
LOC: ER 19:20
DX: S00.03XA Contusion of scalp, initial encounter (principal); G43.909 Migraine, unspecified, not intractable, without status migrainosus; I10 Essential (primary) hypertension; R56.9 Unspecified convulsions; W19.XXXA Unspecified fall, initial encounter; Y93.89 Activity, other specified; Y92.89 Other specified places as the place of occurrence of the external cause; Y99.8 Other external cause status
CPT/HCPCS: 36415; 70450; 70486; 72125; 80053; 80164; 83605; 85025; 93005; 96365; 96372; 96375; 99285; J1170; J1885; J2060; J2405; J3010; J3030

== ENCOUNTER 2020-06-06 05:17 | Emergency (ER) | payer BC ==
[~2020-06-06] VITALS: Ht 167.6 cm; Wt 81.8 kg
[2020-06-06] MEDS ORDERED: IV NORMAL SALINE 1000ML BAG 1,000 ML IV ONE ×2 (05:30→08:30)
--- NOTE | 2020-06-06 05:39 | PHYS DOC ---
Past Medical History Past Medical History: Diabetes-Type II, Hypertension, Seizure (DORA ASKEW DO) Past Surgical History: Appendectomy, Tonsillectomy, Other Additional Past Surgical Histo: thyroidectomy, bilateral knee replacement (DORA ASKEW DO) Smoking Status: Former Smoker Additional Information: smoked for 7-8 years Alcohol Use: None Drug Use: None (DORA ASKEW DO) General Adult EDM: Chief Complaint: MULTIPLE COMPLAINTS HPI: HPI: Patient is a 44 year old female with history of DM2/HTN/epilepsy who presents to [facility] ED after syncopal episode this morning at 4 am. Tapan crespo states that at 4 am this morning she tino from her bed and started walking out of the room when she began to hot, clammy, her body shaking, sudden headache, and "blanked out". She made her way to her who was home and checked her blood pressure at the time which was 115/78. They subsequently checked it 20 min later and saw that it had dropped to 66/44. It stayed in this range for the next hour which prompted them to come to the ED. She reports that she also felt nauseous during this episode and vomited. Patient has history of seizures, and states that she felt like she was having miniature seizures during this episode. She states that she's never had an episode like this before. Patient states that her menstrual periods are becoming more irregular, and that her last one was well over a month ago. Patient's states that while he was trying to talk to her earlier this morning, that she would go in and out of conversation. She states that her diabetes medication regiment has been modified as recent as a month ago. (DORA ASKEW DO) Review of Systems: Review of Systems: Constitutional: Denies fever, reports chills Eyes: Denies redness or eye pain HENT: Denies nasal congestion or sore throat Respiratory: Denies cough or shortness of breath Cardiovascular: Denies chest pain or palpitations GI: Denies abdominal pain, reports nausea and or vomiting : Denies dysuria or hematuria Musculoskeletal: Denies back pain or joint pain Integument: Denies rash or skin lesions Neurologic: Reports headache, reports general weakness, reports light headedness and dizziness Complete systems were reviewed and found to be within normal limits, except as documented in this note. (DORA ASKEW DO) Heart Score: C/O Chest Pain: N/A (DORA ASKEW DO) Current Medications: Current Medications Medications (Trade) Dose Ordered Sig/Laura Start Time Stop Time Status Last Admin Dose Admin Sodium Chloride 1,000 ml @ 1,000 mls/hr 1X ONCE 06/06/20 05:30 06/06/20 06:29 (DORA ASKEW DO) Allergies: Allergies: Allergies Coded Allergies Type Severity Reaction Last Updated Verified No Known Drug Allergies 10/29/16 No (DORA ASKEW DO) Physical Exam: PE: Constitutional: Well developed, well nourished, no acute distress, non-toxic appearance HENT: Normocephalic, atraumatic Eyes: PERRL, EOMI, conjunctiva normal, no discharge Neck: Normal range of motion, no tenderness, supple Lungs & Thorax: No respiratory distress, equal chest rise and fall Abdomen: Soft, no tenderness Skin: Warm, dry, no erythema, no rash Back: No tenderness, no CVA tenderness Extremities: No tenderness, ROM intact, no edema Neurologic: Alert and oriented X 3, normal motor function, normal sensory function, no focal deficits noted Psychologic: Affect normal, judgment normal (DORA ASKEW DO) EKG: EKG: @0534 NSR at 69bpm, NO ST elevation, QRS 78ms, QT/QTc 390/419ms, Q wave in III (DORA ASKEW DO) Radiology/Procedures: Radiology/Procedures: [] (DORA ASKEW DO) Course & Med Decision Making: Course & Med Decision Making Pertinent Lab studies reviewed. (See chart for details) Patient presents with HPI and physical exam concerning for near syncope. History of low blood pressure. IV fluid hydration given. Labs obtained and pending. EKG stable. UA appears contaminated. Urine negative. Signout given to Dr. Coffman for further evaluation and final disposition. Disc ussed current findings and plan with patient and spouse, who acknowledge understanding and agreement. (DORA ASKEW DO) Course & Med Decision Making Patient is a 44-year-old female who had orthostatic hypotension, patient blood pressure was low in ER, patient had history of hypertension, she is on 3 different blood pressure medication. Patient need to stop taking her blood pressure medications AND FOLLOW UP WITH her family physician this week for reevaluation. (SUSI CFOFMAN DO) Edward Disclaimer: Edward Disclaimer: This electronic medical record was generated, in whole or in part, using a voice recognition dictation system. (DORA ASKEW DO) Departure Departure Impression: Primary Impression: Near syncope Additional Impressions: UTI (urinary tract infection) Orthostatic hypotension Disposition: 01 DC HOME SELF CARE/HOMELESS Condition: IMPROVED Referrals: NO PCP (PCP) Please follow up with your doctor this week. Patient Instructions: Orthostatic Hypotension, Syncope, Urinary Tract Infection Additional Instructions: DO NOT TAKE ANY OF YOUR BLOOD PRESSURE MEDICATION. KEEP A JOURNAL OF YOUR BLOOD PRESSURE READING. PLEASE FOLLOW UP WITH YOUR DOCTOR THIS WEEK. Scripts Cephalexin (CEPHALEXIN) 500 Mg Capsule 1 CAP PO TID for 7 Days, #21 CAP Prov: SUSI COFFMAN DO 06/06/20 DORA ASKEW DO Jun 06, 2020 05:39 SUSI COFFMAN DO Jun 06, 2020 10:12
[2020-06-06 05:54] LABS: BILIRUBIN,URINE SMALL (NEG); CLARITY,URINE CLOUDY; NITRITE,URINE NEGATIVE (NEG); PROTEIN,URINE NEGATIVE (NEG-TRACE); UROBILINOGEN,URINE 0.2 mg/dL (0.2 mg/dL)
[2020-06-06 05:55] LABS: COLOR,URINE YELLOW
[2020-06-06 06:00] LABS: HYALINE CASTS, URINE FEW /HPF
[2020-06-06 06:01] LABS: BACTERIA,URINE MANY /HPF (0-FEW)
[2020-06-06 06:02] LABS: RBC,URINE OCC /HPF (0-2)
--- NOTE | 2020-06-06 06:05 | EKG ---
[facility] [address] [place] [address] Test Date: 2020-06-06 Test Time: 05:34:52 Pat Name: SRI MAR Department: Room: Gender: F Patient Flow Coordinator: : 1975 Requested By: DORA ASKEW Order Number: [id number] Reading MD: Joseph Mckeon MD Measurements Intervals [place] Rate: 69 P: 31 LA: 186 QRS: 33 QRSD: 78 T: 76 QT: 390 QTc: 419 Interpretive Statements SINUS RHYTHM NON-SPECIFIC ST/T CHANGES Electronically Signed On 06-06-2020 9:28:33 CDT by Joseph Mckeon MD
[2020-06-06 06:16] LABS: BASO # 0.1 x10^3/uL (0.0-0.2); BASO % 1 % (0-3); EOS # 0.1 x10^3/uL (0.0-0.7); EOS % 1 % (0-3); HEMATOCRIT 42.1 % (36.0-47.0); HEMOGLOBIN 14.6 g/dL (12.0-15.5); LYMPH % 20 % (24-48); MEAN CORPUSCULAR HEMOGLOBIN 31 pg (25-35); MEAN CORPUSCULAR HGB CONC 35 g/dL (31-37); MEAN CORPUSCULAR VOLUME 89 fL (79-100); MONO # 0.5 x10^3/uL (0.0-1.1); MONO % 5 % (0-9); NEUT % 73 % (31-73); PLATELET COUNT 206 x10^3/uL (140-400); RED BLOOD COUNT 4.75 x10^6/uL (3.50-5.40); RED CELL DISTRIBUTION WIDTH 14.2 % (11.5-14.5); WHITE BLOOD COUNT 9.7 x10^3/uL (4.0-11.0)
[2020-06-06 06:31] LABS: CALCIUM 10.4 mg/dL (8.5-10.1); CREATININE 1.5 mg/dL (0.6-1.0); GFR 37.7; POTASSIUM 3.8 mmol/L (3.5-5.1)
[2020-06-06 06:36] LABS: VAL ACID 123 mcg/mL (50-100)
[2020-06-06 06:37] LABS: ALBUMIN 3.9 g/dL (3.4-5.0); TOTAL BILIRUBIN 0.7 mg/dL (0.2-1.0); TOTAL PROTEIN 7.9 g/dL (6.4-8.2)
[2020-06-06 07:00] LABS: CREATINE KINASE 131 U/L (26-192)
[2020-06-06] MEDS ORDERED: cefTRIAXone IV Push 1 GM VIAL. IVP ONE (08:00)
[2020-06-06 09:54] VITALS: BP 107/64
[2020-06-06] MEDS ORDERED: CEPH500C PO (10:12)
== END 2020-06-06 10:30 | disposition home or self-care (01) ==
LOC: ER 05:17
DX: N39.0 Urinary tract infection, site not specified (principal); I95.1 Orthostatic hypotension; R51.9 Headache, unspecified; R11.2 Nausea with vomiting, unspecified; E11.9 Type 2 diabetes mellitus without complications; Z87.891 Personal history of nicotine dependence; Z90.89 Acquired absence of other organs; Z98.890 Other specified postprocedural states
CPT/HCPCS: 36415; 80053; 80164; 81001; 81025; 82553; 83735; 84484; 85025; 87086; 93005; 96361; 96374; 99285; J0696; J7030